=== PATIENT | male | born 1990 | race Caucasian/White ===

== ENCOUNTER 2018-01-15 23:04 | Emergency (ER) | payer SELFPAY ==
[2018-01-15 23:05] VITALS: BP 122/76; PULSE 76; RESP 16; TEMP 98; O2SAT 97
--- NOTE | 2018-01-15 23:22 | PD ---
HPI Chief Complaint: overdose Time Seen by Provider: 23:18 Travel History International Travel<30 days: No Contact w/Intl Traveler<30days: No History of Present Illness HPI 27 y/o male presents after he injected heroin and was unresponsive. The ambulance team arrived on scene they gave him 0.4 of Narcan and he awoke with normal vitals after that. Here he denies any complaints and said that it was an accidental overdose. He is wanting to leave. PFSH Past Medical History Hx Anticoagulant Therapy: No Cardiovascular Problems: No Chemotherapy: No Cerebrovascular Accident: No Diabetes: No Diminished Hearing: No Gastrointestinal Disorders: Yes (gastritis) Kidney Stones: Yes Respiratory: No Immunizations Current: No Social History Alcohol Use: No (pt denies) Tobacco Use: Yes Substance Use: No Allergies-Medications (Allergen,Severity, Reaction): Coded Allergies: No Known Allergies (Unverified Adverse Reaction, Unknown, 01/15/18) Reported Meds & Prescriptions Reported Meds & Active Scripts Active No Active Prescriptions or Reported Medications Review of Systems Except as stated in HPI: all other systems reviewed are Neg Physical Exam Narrative GENERAL: 27-year-old male in no apparent distress SKIN: Focused skin assessment warm/dry. HEAD: Atraumatic. Normocephalic. EYES: Pupils equal and round. No scleral icterus. No injection or drainage. ENT: No nasal bleeding or discharge. Mucous membranes pink and moist. NECK: Trachea midline. No JVD. CARDIOVASCULAR: Regular rate and rhythm. RESPIRATORY: No accessory muscle use. Clear to auscultation. Breath sounds equal bilaterally. GASTROINTESTINAL: Abdomen soft, non-tender, nondistended. MUSCULOSKELETAL: No obvious deformities. No clubbing. No cyanosis. No edema. NEUROLOGICAL: Awake and alert. No obvious cranial nerve deficits. Motor grossly within normal limits. Normal speech. PSYCHIATRIC: Appropriate mood and affect; insight and judgment normal. Data Data Last Documented VS Vital Signs Date Time Temp Pulse Resp B/P (MAP) Pulse Ox O2 Delivery O2 Flow Rate FiO2 01/15/18 23:34 97 Room Air 01/15/18 23:05 98.0 76 16 122/76 (91) [facility] Medical Decision Making Medical Screen Exam Complete: Yes Emergency Medical Condition: Yes Medical Record Reviewed: Yes (Past history confirmed) Differential Diagnosis Overdose, co-ingestion Narrative Course Advised patient that I recommend he stay and get monitored as the Narcan could wear off while he still has heroin in his system and he could go unresponsive again. He is refusing all testing but agrees to wait till a ride can watch over him. 1149 patient states he can't find a ride and wants to leave ama, AMA: The risks of leaving against medical advice without further evaluation treatment were discussed with the patient. These risks include cardiac dysfunction, cardiac dysrhythmia, possible heart attack, possible stroke or . The patient indicated understanding of these risks and appeared to have the capacity to make this decision. Patient is alert and oriented. Patient has no [place] act criteria. Nurse at bedside. He understands that Narcan can wear off and he could still have heroin in his system and he go unconscious again and he still adamantly refuses to stay Diagnosis Primary Impression: Accidental overdose of heroin Qualified Codes: T40.1X1A - Poisoning by heroin, accidental (unintentional), initial encounter Patient Instructions: General Instructions Additional Instructions: avoid heroin, return noemi for completion of testing Med/Other Pt SpecificInfo: No Change to Meds Scripts No Active Prescriptions or Reported Meds Disposition: 07 AGAINST MEDICAL ADVICE Condition: Stable Naa Martinez MD Jan 15, 2018 23:22
== END 2018-01-16 00:11 | disposition left against medical advice (07) ==
LOC: NEPC 23:04
DX: T40.1X1A Poisoning by heroin, accidental (unintentional), initial encounter (principal)
CPT/HCPCS: 99282